=== PATIENT | male | born 1985 | race Two or more races ===

== ENCOUNTER → 2023-04-18 | Outpatient (CLI) | payer BC ==
--- NOTE | 2023-04-18 10:48 | US ---
EXAMINATION TYPE: US kidneys/renal and bladder DATE OF EXAM: 04/18/2023 COMPARISON: NONE CLINICAL INDICATION: Male, 37 years old with history of R10.9 UNSPECIFIED ABDOMINAL PAIN; RLQ/Right I nguinal discomfort while bending; UTI end of february with low back pain and RLQ pain; Hx HTN; On Tad max EXAM MEASUREMENTS: Right Kidney: 14.4 x 8.7 x 6.3 Left Kidney: 13.7 x 8.4 x 5.4 Post Void Residual Volume: NAmL TRAINER NOTES: Difficult exam due to overlying bowel gas and rib shadowing. ? Hernia RLQ superio r to [employer] Right Kidney: No hydronephrosis or masses seen Left Kidney: No hydronephrosis or masses seen Bladder: wnl Bilateral Jets seen: Yes Normal Post Void Residual: NA IMPRESSION: 1. Scanning at the targeted area of concern in the right lower quadrant, questionable tiny 8 mm herni a defect indicated by the floor cleaner. 2. No hydronephrosis on either side.
== END | disposition home or self-care (01) ==
LOC: RADUSWWP 10:01
PROVIDERS: ATTEND Family Medicine
DX: R10.9 Unspecified abdominal pain (principal); R10.31 Right lower quadrant pain; N39.0 Urinary tract infection, site not specified; I10 Essential (primary) hypertension
CPT/HCPCS: 76770